=== PATIENT | male | born 1935 | race Caucasian/White ===

== ENCOUNTER 2016-10-09 09:27 | Inpatient (IN) ==
[2016-10-09] MEDS ORDERED: NS 1,000 ML IV ONE ×2 (09:48→14:13)
--- NOTE | 2016-10-09 10:01 | EKG Report ---
Test Performed on : 10/09/2016 09:47:06 AM Test Reason : weakness Blood Pressure : / mmHG Vent. Rate : 091 BPM Atrial Rate : 091 BPM P-R Int : 162 ms QRS Dur : 078 ms QT Int : 368 ms P-R-T Axes : 086 068 075 degrees QTc Int : 452 ms Normal sinus rhythm. Normal ECG No previous ECGs available Unconfirmed Result
--- NOTE | 2016-10-09 10:07 | Diag Imaging Result Doc PS360 ---
CHEST-PORTABLE - 10/09/2016 INDICATION: AMS TECHNIQUE: COMPARISON: 09/09/2016 FINDINGS: Stable calcified granuloma in the left upper lobe. No new or focal infiltrates. Heart size is normal. IMPRESSION: No acute disease or change from prior. Electronically signed by Lauro Nixon 10/09/2016 10:05 AM
[2016-10-09 10:22] LABS: MANUAL DIFF NEEDED? NO
[2016-10-09 10:24] LABS: URINE CULTURE NEEDED? NO; URINE MICRO REVIEW NEEDED? NO; URINE SOURCE CLEAN CATCH
[2016-10-09 10:34] LABS: BASO% 1.1 % (0.0-0.8); EOS% 1.6 % (0.0-10.0); HEMOGLOBIN 12.5 g/dL (14.0-18.0); IMM GRAN# 0.02 X1000 (0.0-0.04); IMM GRAN% 0.2 % (0.0-0.5); LYMPH# 2.51 X1000 (1.2-3.4); LYMPH% 20.6 % (20.5-51.1); MCH 23.4 PG (27-31); MCHC 29.8 g/dL (33-37); MCV 78.7 FL (81-99); MONO# 1.05 X1000 (0.11-0.59); MONO% 8.6 % (1.7-9.3); MPV 10.7 FL (7.4-10.4); NEUT% 67.9 % (42.2-75.2); PLT 468 X1000 (130-400); RBC 5.34 XMIL (4.7-6.1)
[2016-10-09 10:34] LABS: BILIRUBIN URINE NEGATIVE (NEGATIVE); BLOOD URINE NEGATIVE (NEGATIVE); COLOR YELLOW; GLUCOSE URINE NEGATIVE (NEGATIVE); LEUKOCYTES URINE NEGATIVE (NEGATIVE); NITRITE URINE NEGATIVE (NEGATIVE); PH URINE 5.5; PROTEIN URINE TRACE mg/dL (NEGATIVE); SP GRAVITY URINE 1.028; TURBIDITY URINE CLEAR (CLEAR); UROBILINOGEN URINE NORMAL (NORMAL)
[2016-10-09 10:36] LABS: UR EPITHELIAL CELLS <10 /HPF (<10); URINE BACTERIA NEGATIVE /HPF; URINE RBC <10 /HPF (<10); URINE WBC <10 /HPF (<10)
[2016-10-09 10:45] LABS: INR 1.09; PROTIME 11.5 Seconds (9.2-11.7); PTT 26.6 Seconds (22.0-36.0)
[2016-10-09 11:15] LABS: ALBUMIN 3.9 g/dL (3.5-5.0); ALKALINE PHOSPHATASE 70 U/L (32-122); BUN 15 mg/dL (8-22); CALCIUM 8.6 mg/dL (8.8-10.2); CK PROFILE 53 U/L (24-204); GOT 21 U/L (10-34); GPT 11 U/L (10-44); TCO2 24 mmol/L (25-35); TOTAL BILIRUBIN 0.21 mg/dL (0.20-1.00); TOTAL PROTEIN 6.8 g/dL (6.3-8.3)
[2016-10-09 11:16] LABS: UR AMPHETAMINES QUAL NONE DETECTED (NONE DETECT); UR BARBITUATES QUAL PRESUMPTIVE POSITIVE (NONE DETECT); UR BENZODIAZEPIN QUAL NONE DETECTED (NONE DETECT); UR CANNABINOIDS QUAL NONE DETECTED (NONE DETECT); UR COCAINE QUAL NONE DETECTED (NONE DETECT); UR METHADONE QUAL NONE DETECTED (NONE DETECT); UR OPIATES QUAL PRESUMPTIVE POSITIVE (NONE DETECT); UR OXYCODONE QUAL NONE DETECTED (NONE DETECT); UR PCP QUAL NONE DETECTED (NONE DETECT)
[2016-10-09 11:22] LABS: CHLORIDE 101 mmol/L (98-107); POTASSIUM 4.4 mmol/L (3.5-5.1); SODIUM 140 mmol/L (136-145)
[2016-10-09 11:32] LABS: AGAP 11; COSMO 281
--- NOTE | 2016-10-09 12:28 | PROVIDER DOCUMENTATION ---
This chart was entered by Nova Stovall Scribe, acting as scribe for Live Wynn MD. HPI-General Adult - General Chief Complaint: Weakness Stated Complaint: weakness Time Seen by Provider: 10/09/16 09:42 Source: patient Allergies/Adverse Reactions: Patient Allergies Allergy/AdvReac Type Severity Reaction Status Date / Time No Known Allergies Allergy Verified 10/09/16 10:18 Home Medications: Home Medication List Medication Instructions Recorded Confirmed Last Taken Type Aspirin 81 mg PO DAILY 10/09/16 10/09/16 10/09/16 History Donepezil [Aricept] 10 mg PO DAILY 10/09/16 10/09/16 10/09/16 History Gabapentin 300 mg PO HS 10/09/16 10/09/16 10/09/16 History Hydrochlorothiazide 12.5 mg PO HS 10/09/16 10/09/16 10/09/16 History Hydrocodone Bit/Acetaminophen 1 each PO Q6HR 10/09/16 10/09/16 10/09/16 History [Hydrocodon-Acetaminophen 5-325] Lisinopril 2.5 mg PO DAILY 10/09/16 10/09/16 10/09/16 History Meloxicam 7.5 mg PO DAILY 10/09/16 10/09/16 10/09/16 History Metformin [Glucophage] 1,000 mg PO DAILY 10/09/16 10/09/16 10/09/16 History Metoprolol Tartrate 50 mg PO DAILY 10/09/16 10/09/16 10/09/16 History Oxybutynin [Ditropan] 10 mg PO DAILY 10/09/16 10/09/16 10/09/16 History Primidone 100 mg PO DAILY 10/09/16 10/09/16 10/09/16 History Primidone 100 mg PO HS 10/09/16 10/09/16 10/09/16 History - History of Present Illness -Gen Adult Nature of Presenting Problems: 81 y/o M presents to ED cc of weakness. Pt states 2 days ago he woke up and was unable to get out of bed, dress himself and was having all over weakness. Pt baseline per friend is being able to get around slowly but by himself. Pt states he has lost coordination and muscle tone. Pt has equal city sanitarian and movement of both legs. Pt is alert and oriented. Denies fever. Pt does report some trouble with urination due to weakness. Pt friend reports " pt losing some brain tissue due to hypoxia". Location of Pain/Injury: reports: generalized Pain Radiation: reports: no radiation Quality of Pain: reports: aching, other (weakness) Severity: reports: mild Onset/Duration: reports: 2 days ago Timing: reports: still present Context/Activities at Onset: reports: none Modifying Factors: improves with: nothing Associated Symptoms: reports: weakness. denies: chest pain, cough, dizziness, EENT symptoms, fever/chills, malaise, muscle aches, nausea, shortness of breath , sensory/motor loss, pain with inspiration, swelling/mass in abdomen Similar Symptoms Previously?: No Recently seen or treated by another doctor?: No Review of Systems - Adult - REVIEW OF SYSTEMS - ADULT Constitutional: denies: chills, fever Ears, Nose, Mouth & Throat: denies: ear pain, nose pain Cardiovascular: denies: chest pain, palpitations Respiratory: denies: chronic cough, cough, shortness of breath, wheezing Gastrointestinal: denies: abdominal pain, diarrhea, nausea, vomiting Musculoskeletal: denies: bone pain, back pain Neurological: reports: other (weakness). denies: dizziness/vertigo, headache/ migraines, slurred speech Past History - Adult - PAST MEDICAL HISTORY-ADULT Review of Records: reports: Old Records Reviewed, Nursing Assessment Review Cardiovascular: reports: HTN Neurological: reports: dementia Endocrine/Immune: reports: Diabetes - IMMUNIZATION STATUS Childhood Immunizations: See Nurse Assessment Flu Vaccine: See Nurse Assessment - FAMILY HISTORY Family History: sudden - SOCIAL HISTORY Smoking: denies, non-smoker Substance Use: none/never, denies Physical Exam-General - PHYSICAL EXAM-ADULT Initial Vital Signs Reviewed: Yes - CONSTITUTIONAL General Appearance: appears well, alert, no apparent distress - EYES Eyes: pink conjunctivae - HEAD, EARS, NOSE, MOUTH & THROAT HENMT: moist mucous membranes, normal ENT inspection - NECK Neck: non-tender - RESPIRATORY Respiratory: chest non-tender, lungs clear, normal breath sounds - CARDIOVASCULAR Cardiovascular: normal peripheral pulses, regular rate, rhythm, no edema - GASTROINTESTINAL (ABDOMEN) Abdominal Exam: normal bowel sounds, non tender, soft - LYMPHATIC Lymphatic: no adenopathy - MUSCULOSKELETAL Back Exam: no CVA tenderness, no vertebral tenderness Extremity: normal range of motion, non-tender - SKIN Integumentary: normal color, normal turgor, warm/dry - NEUROLOGIC Neurologic: grossly normal, no motor/sensory deficits. negative: facial droop, focal weakness, motor weakness, sensory deficit - PSYCHIATRIC Psych/Mental Status: oriented x 3 Progress - PLAN OF CARE/RESULTS Progress/Plan/Lab Results: Vital Signs - 8 hr 10/09/16 09:35 Temperature 97.8 F Pulse Rate 89 Respiratory Rate 18 Blood Pressure 148/74 O2 Sat by Pulse Oximetry 96 Laboratory Results - last 24 hr 10/09/16 10:10 Urine Source CLEAN CATCH Orders Category Date Time Status Cardiac Monitoring DIRECTED Care 10/09/16 09:49 Active Finger Stick Blood Sugar (ED) DIRECTED Care 10/09/16 09:49 Active Saline Loc NOW Care 10/09/16 09:49 Active CHEST-PORTABLE [RAD] Stat Exams 10/09/16 09:49 Completed HEAD W/O CONTRAST [CT] Stat Exams 10/09/16 09:49 Ordered ALCOHOL BLOOD Stat Lab 10/09/16 10:04 Received CBC WITH ELECTRONIC DIFF [HEME] Stat Lab 10/09/16 10:04 Results CK PROFILE [SP CHEM] Stat Lab 10/09/16 10:04 Received COMPREHENSIVE METABOLIC PANEL [CHEM] Stat Lab 10/09/16 10:04 Received LACTATE, PLASMA [CHEM] Stat Lab 10/09/16 10:04 Received PRO B-NATRIURETIC PEPTIDE Stat Lab 10/09/16 10:04 Received PROTIME WITH INR [COAG] Stat Lab 10/09/16 10:04 Received PTT [COAG] Stat Lab 10/09/16 10:04 Received TROPONIN T Stat Lab 10/09/16 10:04 Received URINALYSIS W/POSS RFLX CULT-1 [URINALYSIS] Stat Lab 10/09/16 10:10 Results URINE DRUG SCREEN Stat Lab 10/09/16 10:10 Received 0.9% Sodium Chloride Inj [Ns] 1,000 ml Med 10/09/16 09:48 Active IV 150 mls/hr Pulse Oximetry Stat Oth 10/09/16 09:49 Active EKG [EKG] Stat Ther 10/09/16 09:39 Draft PLAN: LABS , URINE , HEAD CT. PT STATES HE HAD AN MRI SCAN DONE AND IT WAS NORMAL X 1 WEEK AGO. PT DID NOT WANT CT SCAN. SPOKE TO PT AND PT WILL NOW HAVE CT SCAN DONE ACCEPTED PT FOR ADMISSION. Result Diagrams: 10/09/16 10:04 10/09/16 10:04 - REASSESSMENT Reassessment #1 Time Reassessed: 12:15 Status: unchanged - XRAY 1 XRAY: Bilateral XRAY Study: Chest Impression: Normal Comparison with other Films: no changes XRAY Interpretation: NO ACUTE DISEASE OR CHANGE FROM PRIOR- ( RADIOLOGIST) - CONSULTS/PCP/HOSPITALIST Notification #1 *Consult/PCP/Hospitalist*: (hospitalist) Time Discussed: 12:25 Consult Disposition: Admit Departure - Departure Time of Disposition Decision: 12:24 DIAGNOSIS: Fine motor skill loss Altered mental status Qualifiers: Altered mental status type: unspecified Qualified Code(s): R41.82 - Altered mental status, unspecified Disposition: ADMITTED INPATIENT 09 Certified Medical Emergency: Emergent Condition: Stable Referrals and Follow-Ups: Edna Mcintyre [Primary Care Provider] - - Critical Care Note This patient required my direct & personal management of CC.: No This chart was documented by the indicated scribe, (Nova Stovall Scribe) and accurately reflects the services I performed and decisions made by me, Live Wynn MD, as attested by the provider's signature.
--- NOTE | 2016-10-09 12:29 | ED EKG INTERP ---
This chart was entered by Nova Stovall Scribe, acting as scribe for Live Wynn MD. EKG Interpretation - EKG Time of EKG reading by physician:: 09:47 EKG Read and Signed by:: Live Wynn EKG Interpretation (*Must complete 3 of following elements*): Normal Rate: 91 Rhythm: nsr [place]: normal QRS: normal [place] Interval: normal ST Wave: normal This chart was documented by the indicated scribe, (Nova Stovall Scribe) and accurately reflects the services I performed and decisions made by me, Live Wynn MD, as attested by the provider's signature.
--- NOTE | 2016-10-09 13:07 | Diag Imaging Result Doc PS360 ---
EXAM: HEAD W/O CONTRAST HISTORY: weakness TECHNIQUE: CT of the head without contrast with dose reduction (clarity.) COMMENT: There is a focus of encephalomalacia in the schultz radiata and centrum semiovale region on the right. This was not present on the MRI of 03/29/2014. There have been no subsequent previous studies. There is no evidence of mass effect bleed or abnormal extra-axial fluid collection. There is a small subcentimeter lacune in the left putamen. There may be a similar lesion on the right. There are calcifications in both internal carotid arteries. The visualized paranasal sinuses are clear. IMPRESSION: Chronic ischemic changes which have progressed since 03/29/2014. No definite evidence of acute disease. Given these findings, follow-up MRI may be desirable. Electronically signed by Robert Doshi 10/09/2016 1:05 PM
[2016-10-09] MEDS ORDERED: DUONEB (A & A) INH PRN (15:35)
--- NOTE | 2016-10-09 16:05 | HISTORY AND PHYSICAL ---
PRIMARY CARE PHYSICIAN: Dr. Melony Mcintyre. CHIEF COMPLAINT: Ataxia. HISTORY OF PRESENT ILLNESS: Mr. Zaidi is an 81-year-old male with multiple comorbidities including hypertension, diabetes mellitus, history of bladder cancer and coronary disease who presents with 2-3 months of worsening overall weakness with acute worsening over the past 24-48 hours. He states that anytime he tries to get up and walk, he has to sit back down because he cannot move very well, he already walks with a walker and he does not have the strength to stand up. He is unable to tie his shoes or really dress himself. He denies any focal deficits, most of his complaints are generalized. He came to the ER today for evaluation. A head CT showed worsening of chronic changes since his last head CT, a follow up MRI was recommended however the patient refuses to do MRI because of claustrophobia. The rest of his diagnostic data was largely unremarkable. He did have very mild leukocytosis. Otherwise labs were unremarkable. He does report chronic shortness of breath but no history of CHF or COPD. He denies any lower extremity edema or chest pain. No recent fevers or chills. We are now going to admit him for further treatment and evaluation. PAST MEDICAL HISTORY: 1. Chronic pain. 2. Lower extremity neuropathy. 3. Hypertension. 4. Diabetes mellitus. 5. History of prostate cancer. 6. Urinary incontinence. 7. [facility] [place]. 8. He reports seeing a pediatric intensive physician for elevated red blood cells but is unsure of the exact diagnosis. 9. Dementia. SURGICAL HISTORY: He has had a left shoulder arthroplasty. SOCIAL HISTORY: He has a distant remote history of smoking. He is and lives alone. He quit drinking 27 years ago. He denies any drug use. FAMILY HISTORY: Mother from breast cancer. Father from unknown causes. REVIEW OF SYSTEMS: Fourteen-point review of systems obtained and found to be negative with the exception of the HPI. HOME MEDICATIONS: Aspirin 81 mg daily. Aricept 10 mg daily. Neurontin 300 mg at bedtime. Hydrochlorothiazide 12.5 mg at bedtime. [place] as needed for pain. Lisinopril 2.5 mg daily. Meloxicam 7.5 mg daily. Glucophage 1000 mg p.o. daily. Metoprolol tartrate 50 mg daily. Ditropan 10 mg daily. Primidone 100 mg p.o. at bedtime and 100 mg daily. ALLERGIES: No known drug allergies. PHYSICAL EXAMINATION: VITAL SIGNS: Blood pressure is 191/88, heart rate is 89, respiratory rate 18, O2 saturation 94% on room air. Temperature is 97.8 degrees. GENERAL: This is an overweight, male, lying in a hospital bed in no acute distress. NEUROLOGIC: The patient is awake, alert, and he follows commands without focal deficits. He is slightly confused as to the date and place. HEENT: Head is atraumatic and normocephalic. Pupils equal, round, reactive to light. Oral mucosa is moist. Trachea is midline. No JVD. No carotid bruits. CHEST: Diminished at the bases with some very faint inspiratory wheezing. CV: Regular rate and rhythm. S1, S2 is noted. GI: Soft, nondistended, nontender. Bowel sounds positive. EXTREMITIES: No edema, clubbing or cyanosis. Pulses palpable but diminished bilaterally. DIAGNOSTIC DATA: Head CT shows chronic ischemic changes which have progressed since 2014. No definite evidence of acute disease. Given these findings, a followup MRI may be desirable. Chest x-ray shows stable calcified granuloma in the left upper lobe. No new or focal infiltrates. Heart size is normal. EKG shows normal sinus rhythm without acute ST or T abnormalities. WBC 12.9, hemoglobin 12.5, hematocrit 42, MCV 78.7, platelet count 468,000. PT 11.5 , INR 1.09. Sodium 140, potassium 4.4, chloride 101, CO2 24, anion gap 11, BUN 15, creatinine 0.8, glucose 105, calcium 8.6. LFTs within normal limits. Lactate 0.4. UA is negative for any acute process. Toxicology is positive for opiates and barbiturates. ASSESSMENT AND PLAN: 1. Ataxia and generalized weakness: The patient refuses MRI secondary to claustrophobia. He does not exert any focal deficits. Lacunar stroke or toxic metabolic encephalopathy are certainly possibilities. In any case, he is going to need medication optimization, carotid ultrasound and echocardiogram. He will need physical therapy consult and social work consult for long-term placement. We will monitor his neuro status closely. Follow telemetry. 2. Hypertension: Will allow for permissive hypertension the first 24 hours and restart antihypertensive slowly tomorrow. 3. Diabetes mellitus: Metformin is on hold. Add pattern sugars and sliding scale insulin. 4. Urinary incontinence, chronic, stable. Continue his Ditropan. 5. Coronary artery disease. The patient denies any chest pain, but he is complaining of chronic shortness of breath so we are going to trend his enzymes and check an echocardiogram. Make sure his medications are optimized. It does not appear that he is on a statin so will add a statin to his combination of aspirin and beta nuzhat. 6. History of prostate cancer: Aware. 7. DVT prophylaxis is going to be provided with Lovenox. Further recommendations to follow. Dictated by MELISSA Jones for Abdoulaye Alegria MD cc: MELISSA Jones MD Lindsay E. Smith, MD MTDMirta
[2016-10-09] MEDS: DUONEB (A & A) INH SCH ×3 (16:22→22:33)
[2016-10-09] MEDS: HUMALOG SUBQ SCH ×3 (18:01→21:28)
--- NOTE | 2016-10-09 18:05 | ECHO REPORT ---
ORDER DATE: 10/09/2016 SUMMARY: 1. Very difficult study for interpretation due to very limited acoustic window quality. 2. Fibrocalcific changes of 3 aortic leaflet aortic valve demonstrated with reduced aortic valve leaflet mobility but visible aortic valve opening evident. Appearance is suggestive of mild to moderate aortic stenosis. Mitral and tricuspid valves are without gross structural abnormality with trace tricuspid regurgitation. The aortic root is normal size. 3. Normal left ventricular chamber size with mild concentric left hypertrophy is suggested on 2- dimensional images. Estimated left ejection fraction appears to be at least 50%. Regional wall motion analysis is challenging given limitation of study. Left atrium, right atrium, right ventricle grossly normal in size. 4. No pericardial effusion. 5. Inferior vena cava not well demonstrated. CONCLUSIONS: 1. Very difficult study for interpretation. 2. Probably mild to moderate aortic stenosis. 3. Mild concentric left hypertrophy suggested with estimated left ejection fraction at least 50%. cc: MD Izaiah Gasca CRNP
[2016-10-10] MEDS: DUONEB (A & A) INH SCH ×6 (03:18→22:47)
[2016-10-10] MEDS: HUMALOG SUBQ SCH ×4 (06:29→21:05)
[2016-10-10 06:46] LABS: HEMATOCRIT 39.3 % (42.0-52.0); HEMOGLOBIN 11.8 g/dL (14.0-18.0); MCH 23.6 PG (27-31); MCV 78.8 FL (81-99); MPV 10.9 FL (7.4-10.4); RBC 4.99 XMIL (4.7-6.1)
[2016-10-10 06:49] LABS: HEMOGLOBIN A1C 6.1 % (4.8-6.0)
[2016-10-10 07:14] LABS: AGAP 14; BUN 12 mg/dL (8-22); CALCIUM 8.8 mg/dL (8.8-10.2); CHLORIDE 102 mmol/L (98-107); COSMO 285; HDL 37 mg/dL (35-55); LDL 94 mg/dL; POTASSIUM 3.8 mmol/L (3.5-5.1); SODIUM 143 mmol/L (136-145); TCO2 27 mmol/L (25-35); TRIGLYCERIDES 130 mg/dL (39-160); VLDL 26 mg/dL
[2016-10-10] MEDS: LOVENOX SUBQ SCH (09:53)
[2016-10-10] MEDS ORDERED: NORCO-5 PO ONE (10:00)
[2016-10-10] MEDS ORDERED: NORCO-5 PO PRN (12:51)
[2016-10-10] MEDS: NORCO-5 PO PRN ×2 (14:53→19:08)
--- NOTE | 2016-10-10 15:57 | PROGRESS NOTE ---
DATE: 10/10/2016 SUBJECTIVE: This patient states that he is feeling a little bit better, he is still complaining of generalized weakness but compared with yesterday he feels much better, we have consulted physical therapy to evaluate this patient as well. This patient at this point is not showing any kind of a stroke but generalized weakness. He should be discharged to a rehab center. before and after school daycare worker will be on board. Because we were suspecting about a stroke we held all his hypertensive medications but we are going to restart all of them today. OBJECTIVE: Vital Signs: Temperature 98 degrees, pulse 91, respiratory rate 18, blood pressure 155/84, O2 saturation 100% on room air. HEENT: Head normocephalic. No trauma. PERRLA. Neck: Supple. No JVD. No masses. Central trachea. Chest: Clear to auscultation. No wheezing. No rales. Decreased breath sounds at the bases. Cardiovascular: RRR. No murmurs. Abdomen: Soft, nontender, nondistended. Positive bowel sounds. Extremities: No edema. No clubbing. No cyanosis. Neurological: The patient is alert and oriented x3. He was confused yesterday slightly but today he looks much better. LABORATORY: WBC 10.5, hemoglobin 11.8, hematocrit 39.3, platelets 435,000. Sodium 143, potassium 3.8, chloride 102, bicarbonate 27, BUN 12, creatinine 0.7, glucose 101, calcium 8.8, hemoglobin A1c is 6.1, troponins negative x3. ASSESSMENT AND PLAN: 1. Generalized weakness. This patient is looking better today. We will continue with the same management. A echocardiogram did not show any acute problem. Neither did CT scan of the head. Physical therapy is on board, probably this patient will need care home placement. We will continue monitoring the neurological status closely with telemetry. 2. Hypertension. I will restart his home medications today. 3. Diabetes. I will continue with sliding scale insulin and pattern of blood sugar. 4. Urinary incontinence. Continue with home medication. 5. Coronary artery disease. No chest pain at this moment. 6. History of prostate cancer. Aware. 7. Deep vein thrombosis prophylaxis. Continue with Lovenox. cc: Abdoulaye Alegria MD
[2016-10-10] MEDS: HYDROCHLOROTHIAZIDE PO SCH (21:04)
[2016-10-10] MEDS: MYSOLINE PO SCH (21:04)
[2016-10-10] MEDS: NEURONTIN PO SCH (21:05)
[2016-10-11] MEDS: DUONEB (A & A) INH SCH ×6 (03:43→22:44)
[2016-10-11] MEDS: HUMALOG SUBQ SCH ×4 (06:27→22:38)
[2016-10-11 06:55] LABS: MANUAL DIFF NEEDED? NO
[2016-10-11 07:08] LABS: BASO% 1.2 % (0.0-0.8); EOS# 0.24 X1000 (0.0-0.7); EOS% 2.3 % (0.0-10.0); HEMATOCRIT 39.8 % (42.0-52.0); HEMOGLOBIN 12.3 g/dL (14.0-18.0); IMM GRAN# 0.02 X1000 (0.0-0.04); IMM GRAN% 0.2 % (0.0-0.5); LYMPH# 2.17 X1000 (1.2-3.4); LYMPH% 20.9 % (20.5-51.1); MCH 23.7 PG (27-31); MCHC 30.9 g/dL (33-37); MCV 76.8 FL (81-99); MONO# 0.97 X1000 (0.11-0.59); MONO% 9.3 % (1.7-9.3); MPV 11.3 FL (7.4-10.4); NEUT% 66.1 % (42.2-75.2); PLT 461 X1000 (130-400); RBC 5.18 XMIL (4.7-6.1)
[2016-10-11 07:45] LABS: AGAP 16; BUN 13 mg/dL (8-22); CALCIUM 9.3 mg/dL (8.8-10.2); CHLORIDE 101 mmol/L (98-107); COSMO 286; POTASSIUM 3.9 mmol/L (3.5-5.1); SODIUM 143 mmol/L (136-145); TCO2 26 mmol/L (25-35)
[2016-10-11] MEDS: DITROPAN PO SCH (08:39)
[2016-10-11] MEDS: ASPIRIN PO SCH (08:40)
[2016-10-11] MEDS: ARICEPT PO SCH (08:40)
[2016-10-11] MEDS: LOPRESSOR PO SCH (08:40)
[2016-10-11] MEDS: LOVENOX SUBQ SCH (08:40)
[2016-10-11] MEDS: PRINIVIL PO SCH (08:40)
[2016-10-11] MEDS: MYSOLINE PO SCH ×2 (08:40→20:20)
--- NOTE | 2016-10-11 17:48 | PROGRESS NOTE ---
DATE: 10/11/2016 SUBJECTIVE: This patient states that he is feeling better, he is still having generalized weakness. I already talked to the social service worker, we are trying to find a rehab center for this patient. OBJECTIVE: Vital Signs: Temperature 97.4 degrees, pulse 106, respiratory rate 19, blood pressure 138/82, O2 saturation 96 on room air. HEENT: Head normocephalic. No trauma. PERRLA. Neck: Supple. No JVD. No masses. Central trachea. Chest: Clear to auscultation. No wheezing. No rales. Cardiovascular: RRR. Abdomen: Soft, nontender, nondistended. Positive bowel sounds. Extremities: No edema. No clubbing. No cyanosis. Neurological: The patient is alert and oriented x3. No focal deficits today. LABORATORY: WBC 10.3, hemoglobin 12.3, hematocrit 39.8, platelets 461,000. Sodium 143, potassium 3.9, chloride 101, bicarbonate 26, BUN 13, creatinine 0.8, glucose 107, calcium 9.3, magnesium 1.7. ASSESSMENT AND PLAN: 1. Generalized weakness. This patient is looking better. He was admitted initially because of the possibility of neurological deficits but the neurological status is stable. 2. Hypertension. Continue with the same management. 3. Diabetes. Continue with sliding scale insulin and pattern of blood sugar. 4. Urinary incontinence. Continue with home medication. 5. History of coronary artery disease. No chest pain at this moment. 6. History of prostate cancer. Aware. 7. Deep vein thrombosis prophylaxis. Continue with Lovenox. cc: Abdoulaye Alegria MD
[2016-10-11] MEDS: HYDROCHLOROTHIAZIDE PO SCH (20:20)
[2016-10-11] MEDS: NEURONTIN PO SCH (20:20)
[2016-10-11] MEDS: NORCO-5 PO PRN (20:20)
[2016-10-12] MEDS: DUONEB (A & A) INH SCH ×6 (03:28→23:15)
[2016-10-12 05:49] LABS: HEMATOCRIT 39.4 % (42.0-52.0); HEMOGLOBIN 11.8 g/dL (14.0-18.0); MCH 23.6 PG (27-31); MCHC 29.9 g/dL (33-37); MCV 78.8 FL (81-99); MPV 10.7 FL (7.4-10.4)
[2016-10-12] MEDS: HUMALOG SUBQ SCH ×4 (06:16→22:15)
[2016-10-12 06:24] LABS: AGAP 14; BUN 20 mg/dL (8-22); CALCIUM 9.3 mg/dL (8.8-10.2); CHLORIDE 99 mmol/L (98-107); COSMO 282; POTASSIUM 4.3 mmol/L (3.5-5.1); SODIUM 140 mmol/L (136-145); TCO2 27 mmol/L (25-35)
[2016-10-12] MEDS: LOPRESSOR PO SCH (08:44)
[2016-10-12] MEDS: MYSOLINE PO SCH ×2 (08:45→22:12)
[2016-10-12] MEDS: PRINIVIL PO SCH (08:45)
[2016-10-12] MEDS: DITROPAN PO SCH (08:45)
[2016-10-12] MEDS: LOVENOX SUBQ SCH (08:45)
[2016-10-12] MEDS: ARICEPT PO SCH (08:45)
[2016-10-12] MEDS: ASPIRIN PO SCH (08:45)
[2016-10-12] MEDS: NORCO-5 PO PRN ×2 (09:57→20:37)
--- NOTE | 2016-10-12 13:32 | PROGRESS NOTE ---
DATE: 10/12/2016 SUBJECTIVE: This patient feels much better. He is still having generalized weakness. 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 OBJECTIVE: Vital Signs: Temperature 97.7 degrees, pulse 79, respiratory rate 16, blood pressure 144/48, oxygen saturation 97% on room air. HEENT: Head normocephalic. No trauma. PERRLA. Neck: Supple. No JVD. No masses. Central trachea. Chest: Clear to auscultation. No wheezing. No rales. Cardiovascular: RRR. Abdomen: Soft, nontender, nondistended. Positive bowel sounds. Extremities: No edema. No clubbing. No cyanosis. Neurological: The patient is alert and oriented x3. No focal deficits today. LABORATORY: WBC 13, hemoglobin 11.8, hematocrit 39.4, platelets 434,000. Sodium 140, potassium 4.3, chloride 99, bicarbonate 24, BUN 20, creatinine 0.9, glucose 104, calcium 9.3. ASSESSMENT AND PLAN: 1. Generalized weakness. This patient initially was admitted because of the possibility of neurological deficits but the neurological status is stable. He does not have any focal weakness, just generalized weakness. Pending rehab placement. 2. Hypertension. Continue with the same management. 3. Diabetes. Continue with sliding scale insulin and pattern of blood sugar. 4. Urinary incontinence. Continue with home medication. 5. History of coronary artery disease. No chest pain at this moment. 6. History of prostate cancer. Aware. 7. Deep vein thrombosis prophylaxis. Continue with Lovenox. cc: Abdoulaye Alegria MD
[2016-10-12] MEDS: HYDROCHLOROTHIAZIDE PO SCH (22:12)
[2016-10-12] MEDS: NEURONTIN PO SCH (22:12)
[2016-10-13] MEDS: DUONEB (A & A) INH SCH ×6 (03:45→23:05)
[2016-10-13] MEDS: HUMALOG SUBQ SCH ×4 (06:18→20:55)
[2016-10-13 06:55] LABS: BASO% 1.5 % (0.0-0.8); EOS# 0.44 X1000 (0.0-0.7); EOS% 3.2 % (0.0-10.0); HEMATOCRIT 40.6 % (42.0-52.0); HEMOGLOBIN 12.3 g/dL (14.0-18.0); IMM GRAN# 0.03 X1000 (0.0-0.04); IMM GRAN% 0.2 % (0.0-0.5); LYMPH# 3.13 X1000 (1.2-3.4); LYMPH% 23.1 % (20.5-51.1); MANUAL DIFF NEEDED? YES; MCH 23.7 PG (27-31); MCHC 30.3 g/dL (33-37); MCV 78.4 FL (81-99); MONO# 1.42 X1000 (0.11-0.59); MONO% 10.5 % (1.7-9.3); MPV 10.6 FL (7.4-10.4); NEUT% 61.5 % (42.2-75.2); PLT 427 X1000 (130-400); RBC 5.18 XMIL (4.7-6.1)
[2016-10-13 07:04] LABS: AGAP 15; BUN 26 mg/dL (8-22); CHLORIDE 99 mmol/L (98-107); COSMO 284; POTASSIUM 4.3 mmol/L (3.5-5.1); SODIUM 140 mmol/L (136-145); TCO2 26 mmol/L (25-35)
[2016-10-13 07:18] LABS: BANDS 2 % (0-1); EOS 6 % (1-10); LYMPHS 14 % (21-51); MONO 8 % (1-9)
[2016-10-13 07:19] LABS: HYPOCHROM 2+
[2016-10-13] MEDS: LOPRESSOR PO SCH (08:58)
[2016-10-13] MEDS: MYSOLINE PO SCH ×2 (08:58→20:55)
[2016-10-13] MEDS: PRINIVIL PO SCH (08:59)
[2016-10-13] MEDS: DITROPAN PO SCH (08:59)
[2016-10-13] MEDS: ARICEPT PO SCH (08:59)
[2016-10-13] MEDS: ASPIRIN PO SCH (09:00)
[2016-10-13] MEDS: LOVENOX SUBQ SCH (09:00)
--- NOTE | 2016-10-13 11:06 | Carotid Study ---
DATE: 10/09/2016 PROCEDURE: Carotid duplex imaging. REFERRING PHYSICIAN: Dr. Jade from the emergency department INTERPRETING PHYSICIAN: Dr. Fraser TECH: Joi Guevara RVT INDICATIONS: Transient ischemic attack (ICD-10 G45.9). OBSERVED DATA RIGHT LEFT Brachial Blood Pressure Carotid Pulse Bruits: Carotid/Sub DIAGRAM OF ULTRASOUND IMAGING R L RIGHT INT EXT INT EXT LEFT Adolph (cm/s) Adolph (cm/s) Subclavian 102/0 Subclavian 84/0 CCA Proximal 72/18 CCA Proximal 92/12 CCA Distal 74/14 CCA Distal 74/7 Bulb 79/18 Bulb 48/10 ICA Proximal 79/20 ICA Proximal 56/14 ICA Mid 61/15 ICA Mid 62/14 ICA Distal 58/15 ICA Distal 71/20 ECA 66/6 ECA 54/7 Vertebral 31/11 Vertebral 56/14 ICA/CCA Ratio 1.06 ICA/CCA Ratio 0.77 % Stenosis 0 to 39 % Stenosis 0 to 39 PHYSICIAN INTERPRETATION: Mild atherosclerotic disease of the distal common and internal carotid arteries bilaterally without evidence of a hemodynamically significant lesion in either carotid system. cc: MD Izaiah Hardwick CRNP
--- NOTE | 2016-10-13 11:11 | PROGRESS NOTE ---
DATE: 10/13/2016 SUBJECTIVE: Patient reports feeling fine. No complaints today. OBJECTIVE: Vital Signs: Temperature 97.4 degrees, heart rate 84, respiratory rate 18, blood pressure 154/75, O2 saturation 95% on 2 L nasal cannula. General Examination: This is an 81-year- old, male, lying in bed in no acute distress. HEENT: Head is normocephalic, atraumatic. Anicteric sclerae and pale conjunctivae. Mucous membranes moist. Neck: Supple. No JVD noted. No carotid bruits. No lymphadenopathy. No thyromegaly. Cardiovascular exam: S1 and S2 heard. No murmurs, gallops, or rubs. Regular rate and rhythm. Respiratory exam: Clear bilaterally to auscultation. No work of breathing or using accessory muscles. Abdomen: Soft, nontender to palpation. Bowel sounds present. No organomegaly. Extremities: No clubbing, cyanosis, or edema. Peripheral pulses present in both legs. Neurological exam: Patient alert oriented x3. Able to move 4 extremities. Cranial nerves 2-12 grossly normal. LABORATORY DATA: Reviewed. ASSESSMENT AND PLAN: 1. General weakness. The patient initially was admitted because of possible stroke, but that condition has been ruled out. By now because of generalized weakness, we have consulted social services analyst to help with rehabilitation placement. As soon as we get a bed, we will discharge him. 2. Hypertension. Blood pressure is stable. We will continue with the same management. 3. Diabetes mellitus type 2. We will continue with sliding scale insulin. 4. Urinary incontinence. Will continue home medications. 5. History of coronary artery disease. No chest pain aortic at this time. 6. History of prostate cancer, aware. cc: Bobo Drew MD
[2016-10-13] MEDS: NORCO-5 PO PRN ×2 (14:09→20:55)
[2016-10-13] MEDS: NEURONTIN PO SCH (20:54)
[2016-10-13] MEDS: HYDROCHLOROTHIAZIDE PO SCH (20:54)
[2016-10-14] MEDS: DUONEB (A & A) INH SCH ×6 (04:57→23:05)
[2016-10-14] MEDS: HUMALOG SUBQ SCH ×4 (06:18→21:20)
[2016-10-14] MEDS: DITROPAN PO SCH (08:47)
[2016-10-14] MEDS: PRINIVIL PO SCH (08:47)
[2016-10-14] MEDS: LOVENOX SUBQ SCH (08:48)
[2016-10-14] MEDS: MYSOLINE PO SCH ×2 (08:48→21:19)
[2016-10-14] MEDS: ARICEPT PO SCH (08:48)
[2016-10-14] MEDS: ASPIRIN PO SCH (08:48)
[2016-10-14] MEDS: LOPRESSOR PO SCH (08:48)
--- NOTE | 2016-10-14 11:29 | Diag Imaging Result Doc PS360 ---
EXAM: CHEST-2 VIEWS HISTORY: leukocytosis; required o2 TECHNIQUE: Sitting upright AP and lateral, two views COMPARISON: 10/09/2016 FINDINGS: The lungs are well expanded. The heart is not enlarged. The vessels are not distended. There are no infiltrates. There may be a tiny right pleural effusion versus pleural thickening. There is a granuloma in the mid left lung. IMPRESSION: Stable chest Electronically signed by Carmelo Olmedo 10/14/2016 11:27 AM
--- NOTE | 2016-10-14 11:38 | PROGRESS NOTE ---
DATE: 10/14/2016 today's date is 10/14/2016. SUBJECTIVE: Mr. Arben Zaidi is an 81-year-old, ill-appearing, male. He is in no acute distress. He states he just walked with physical therapy to the nurses' desk and back, and that his lower extremities are achy. Otherwise, he has no complaints at this time. He is also being taken by wheelchair for a chest x-ray. The patient also states that he is having frequent urination. OBJECTIVE: Vital Signs: Temperature 97.7 degrees, heart rate 89, respiratory rate 16, blood pressure 138/77, O2 saturation 94% on room air. General: Mr. Zaidi is an 81-year-old, male. He is in no acute distress. Able to answer questions appropriately. Cardiovascular: S1 and S2. Regular rate and rhythm. No rubs, gallops, or murmurs. Pulmonary: Clear to auscultation. Bilateral breath sounds. No accessory muscle use or work of breathing noted. Currently on room air. Gastrointestinal: Soft, nontender, nondistended. Positive bowel sounds x4. Extremities: No edema noted. Dorsalis and radial pulses +2. Neurologic: Oriented x3. Moves all extremities equally. LABORATORY DATA: None new, although the last 2 days he has had a white blood cell count of 13,000. IMAGING: None, but chest x-ray has been ordered. ASSESSMENT AND PLAN: 1. Generalized weakness is improving with physical therapy. He walked to the nurses' station and back. Currently waiting for rehabilitation placement. 2. Leukocytosis, although he is afebrile. We will go ahead and do a urinalysis, chest x-ray, and blood cultures, just to rule out any risk of infection. He is not on any steroids. 3. Hypertension, stable. Continue with pain management. 4. Diabetes mellitus, type 2. Continue with pattern blood glucoses and sliding scale insulin. 5. Urinary incontinence. Continue with home medications. States that he is still having to get up every 1-2 hours to urinate. 6. History of coronary artery disease, stable. 7. History of prostate cancer. Aware. 8. Disposition: Waiting for rehabilitation placement. Dictated by MELISSA Owens for Bobo Drew MD cc: MELISSA Owens MD
[2016-10-14 12:15] LABS: URINE CULTURE NEEDED? NO; URINE MICRO REVIEW NEEDED? NO; URINE SOURCE CLEAN CATCH
[2016-10-14 12:19] LABS: BILIRUBIN URINE NEGATIVE (NEGATIVE); BLOOD URINE NEGATIVE (NEGATIVE); COLOR YELLOW; GLUCOSE URINE NEGATIVE (NEGATIVE); LEUKOCYTES URINE NEGATIVE (NEGATIVE); NITRITE URINE NEGATIVE (NEGATIVE); PROTEIN URINE NEGATIVE (NEGATIVE); SP GRAVITY URINE 1.019; TURBIDITY URINE CLEAR (CLEAR); UR EPITHELIAL CELLS <10 /HPF (<10); URINE BACTERIA NEGATIVE /HPF; URINE RBC <10 /HPF (<10); URINE WBC <10 /HPF (<10); UROBILINOGEN URINE NORMAL (NORMAL)
[2016-10-14] MEDS: NORCO-5 PO PRN (19:52)
[2016-10-14] MEDS: HYDROCHLOROTHIAZIDE PO SCH (21:19)
[2016-10-14] MEDS: NEURONTIN PO SCH (21:19)
[2016-10-15] MEDS: DUONEB (A & A) INH SCH ×2 (04:36→08:06)
[2016-10-15] MEDS: HUMALOG SUBQ SCH ×2 (06:00→11:53)
[2016-10-15 07:20] LABS: EOS# 0.39 X1000 (0.0-0.7); EOS% 2.9 % (0.0-10.0); HEMATOCRIT 42.7 % (42.0-52.0); IMM GRAN# 0.04 X1000 (0.0-0.04); IMM GRAN% 0.3 % (0.0-0.5); LYMPH# 3.14 X1000 (1.2-3.4); LYMPH% 23.3 % (20.5-51.1); MANUAL DIFF NEEDED? YES; MCH 23.6 PG (27-31); MCHC 30.4 g/dL (33-37); MCV 77.4 FL (81-99); MONO# 1.42 X1000 (0.11-0.59); MONO% 10.5 % (1.7-9.3); MPV 11.4 FL (7.4-10.4); PLT 505 X1000 (130-400); RBC 5.52 XMIL (4.7-6.1)
[2016-10-15 07:38] LABS: BANDS 2 % (0-1); EOS 2 % (1-10); LYMPHS 28 % (21-51); MONO 6 % (1-9)
[2016-10-15 07:46] LABS: AGAP 18; ALBUMIN 4.1 g/dL (3.5-5.0); ALKALINE PHOSPHATASE 75 U/L (32-122); BUN 28 mg/dL (8-22); CALCIUM 9.3 mg/dL (8.8-10.2); CHLORIDE 97 mmol/L (98-107); COSMO 287; GOT 41 U/L (10-34); GPT 36 U/L (10-44); MAGNESIUM 1.9 mg/dL (1.5-2.7); POTASSIUM 3.9 mmol/L (3.5-5.1); SODIUM 141 mmol/L (136-145); TCO2 26 mmol/L (25-35); TOTAL BILIRUBIN 0.25 mg/dL (0.20-1.00); TOTAL PROTEIN 7.3 g/dL (6.3-8.3)
[2016-10-15] MEDS: LOPRESSOR PO SCH (08:50)
[2016-10-15] MEDS: PRINIVIL PO SCH (08:50)
[2016-10-15] MEDS: LOVENOX SUBQ SCH (08:50)
[2016-10-15] MEDS: DITROPAN PO SCH (08:51)
[2016-10-15] MEDS: MYSOLINE PO SCH (08:51)
[2016-10-15] MEDS: ARICEPT PO SCH (08:51)
[2016-10-15] MEDS: ASPIRIN PO SCH (08:52)
[2016-10-15] MEDS: NORCO-5 PO PRN ×2 (08:55→12:28)
--- NOTE | 2016-10-15 11:04 | DISCHARGE SUMMARY ---
ADMISSION DATE: 10/09/2016 DISCHARGE DATE: 10/15/2016 CONSULTATIONS: None. PERTINENT PROCEDURES: 1. Head CT showed chronic ischemic changes, which have progressed since 03/2014 , but no definite evidence of acute disease. 2. Carotid Doppler showed mild atherosclerotic disease of the distal common and internal carotid arteries bilaterally, without evidence of hemodynamically significant lesion in either carotid system. 3. Echocardiogram showed an EF of at least 50%. It was a difficult study for interpretation. DISCHARGE DIAGNOSES: 1. Generalized weakness, improving with physical therapy. Patient being discharged to [facility] in [place]. 2. Leukocytosis. The patient has been afebrile. Urine is negative. Blood cultures are negative. Chest x-ray did not show any infiltrates. No signs of infection were found. 3. Hypertension, stable. 4. Diabetes mellitus type 2. Continue with home medications. 5. Urinary incontinence. Continue with home medications. 6. Coronary artery disease history, stable. 7. Prostate cancer history. Aware. HOSPITAL COURSE: Mr. Zaidi is an 81-year-old male who carries a past medical history of chronic pain, lower extremity neuropathy, hypertension, diabetes mellitus, history of prostate cancer, urinary incontinence, coronary artery disease, [facility], who presented with 2 to 3 months of worsening overall weakness, with acute worsening over the past 24 to 48 hours prior to his admission. He did state that any time he tries to get up and walk, he has to sit back down because he cannot move very well. He already walks with a walker, and he does not have the strength to stand up. He is unable to tie his shoes or dress himself. Denied any focal deficits. Only complaint was generalized weakness. A head CT showed worsening of chronic changes since his last head CT. I did recommend a follow- up MRI. However, the patient refused because of his claustrophobia. His diagnostic data was largely unremarkable, although he did have mild leukocytosis. The patient was worked up and was unremarkable. The patient was admitted for ataxia and generalized weakness. He worked with Physical Therapy, and a Social Service consult for long-term placement. The patient did work with Physical Therapy. [employer] did find him rehab placement with [facility] in [place]. He will be discharged there today. VITAL SIGNS: Temperature is 97.8 degrees, heart rate 88, respirations 19, blood pressure 153/78, O2 is 93% on room air. DISCHARGE DIET: Diabetic. DISCHARGE MEDICATIONS: 1. Aspirin 81 mg p.o. daily. 2. Aricept 10 mg p.o. daily. 3. Gabapentin 300 mg p.o. at bedtime. 4. Hydrochlorothiazide 12.5 mg p.o. at bedtime. 5. [place] 5/325 one each p.o. every 6 hours p.r.n. 6. Lisinopril 2.5 mg p.o. daily. 7. Meloxicam 7.5 mg p.o. daily. 8. Glucophage 1000 mg p.o. daily. 9. Metoprolol 50 mg p.o. daily. 10. Ditropan 10 mg p.o. daily. 11. Primidone 100 mg p.o. at bedtime. 12. Primidone 100 mg p.o. daily. FOLLOWUP: The patient is being discharged to [facility] in [place] for long-term placement. The patient can return to the ED for any worsening of symptoms. TIME SPENT: Discharge time was 36 minutes. Dictated by MELISSA Barbour for Bobo Drew MD cc: MD Melony Reynolds
[2016-10-15 14:24] VITALS: BP 111/77
== END 2016-10-15 14:31 ==
LOC: ED 09:27 → EDIPHOLD 15:41 → SUATTDRO 15:41 → 3N 16:11
PROVIDERS: ATTEND Internal Medicine